=== PATIENT | female | born 1980 | race Caucasian/White ===

== ENCOUNTER 2017-07-17 19:33 | Emergency (ER) | payer BC | END 2017-07-17 20:57 | disposition left against medical advice (07) | LOC: UCCORT 19:33 | DX: R05 Cough (principal); Z53.21 Procedure and treatment not carried out due to patient leaving prior to being seen by health care provider ==

== ENCOUNTER → 2017-11-17 14:08 | Emergency (ER) | payer BC ==
[2017-11-17 14:12] VITALS: BP 147/80
--- NOTE | 2017-11-17 15:53 | ED ---
Luke Greenberg Angela, scribed for Dafne Alexander MD on 11/17/17 at 1437 . Complex/Multi-Sys Presentation - HPI Summary HPI Summary: This pt is a 37 y/o female [facility] in [facility] for aplastic anemia (low hemoglobin and low hematocrit). Pt reports Dr. Ramirez's office at [facility] ordered a weekly blood draw which pt had done at [facility] this am, and a critical value was called to the Cancer Center and pt was found to have a hemoglobin of 5.7 and hematocrit of 16. Mary Li RN from [facility] states pt has usual H/H in the 7/20 range, and she is pancytopenic. Pt notes she had a transfusion of 4 units blood 4 weeks ago at [facility]. Currently pt denies any physical complaints or any pain. She states she is nervous now due to her abnormal blood work. Pt has never been transfused at [facility] before. - History Of Current Complaint Chief Complaint: EDGeneral Time Seen by Provider: 11/17/17 14:16 Hx Obtained From: Patient Onset/Duration: Sudden Onset, Still Present Timing: Constant Severity Currently: None - no pain or physical complaints Location: Negative Associated Signs And Symptoms: Positive: Other - pt denies any complaints Related History: Other - transfused 4 weeks ago, 4 units - Allergies/Home Medications Allergies/Adverse Reactions: Allergies Allergy/AdvReac Type Severity Reaction Status Date / Time No Known Allergies Allergy Verified 10/12/16 08:54 PMH/Surg Hx/FS Hx/Imm Hx Previously Healthy: No Endocrine/Hematology History: Reports: Hx Bone Marrow Disease - aplastic anemia Denies: Hx Diabetes Cardiovascular History: Denies: Hx Hypertension - Surgical History Surgery Procedure, Year, and Place: none Infectious Disease History: No Infectious Disease History: Denies: Traveled Outside the [place] in Last 30 Days - Family History Known Family History: Positive: Respiratory Disease - asthma - Social History Lives: With Family Alcohol Use: Rare Substance Use Type: Reports: None Smoking Status (MU): Former Smoker Type: Cigarettes Review of Systems Constitutional: Other - low hematocrit and low hemoglobin Negative: Fever, Chills Eyes: Negative Negative: Chest Pain Negative: Shortness Of Breath Musculoskeletal: Negative Skin: Negative Psychological: Other - nervous All Other Systems Reviewed And Are Negative: Yes Physical Exam - Summary Physical Exam Summary: Appearance: Well-appearing, no pain distress, Well-nourished Skin: Warm, color reflects adequate perfusion, pale skin not appreciated by me Head: Normal Head/Face inspection Eyes: Conjunctiva clear ENT: Normal ENT inspection Neck: Supple Respiratory: Lungs clear, Normal breath sounds, no respiratory distress Cardio: RRR, No murmur, pulses normal, brisk capillary refill Abdomen: soft, nontender Musculoskeletal: Strength Intact/ ROM intact. No calf tenderness. No edema. Neuro: Alert, muscle tone normal, facial symmetry, speech normal, sensory/motor intact Psychological: Normal Triage Information Reviewed: Yes Vital Signs On Initial Exam: Initial Vitals Temp Pulse Resp BP Pulse Ox 98.8 F 106 18 147/80 100 11/17/17 14:09 11/17/17 14:09 11/17/17 14:09 11/17/17 14:09 11/17/17 14:09 Vital Signs Reviewed: Yes Diagnostics - Vital Signs Vital Signs Temp Pulse Resp BP Pulse Ox 11/17/17 14:09 98.8 F 106 18 147/80 100 - Laboratory Lab Statement: Any lab studies that have been ordered have been reviewed, and results considered in the medical decision making process. Re-Evaluation - Re-Evaluation First Eval Re-Evaluation Time: 15:15 Change: Unchanged Comment: I discussed with the pt that I spoke with Dr. Parks (from the [facility]) who recommends to transfuse 2 units of blood. Pt was advised to keep her appointment with Dr. Ramirez next Wed., 11/24/17. Pt is being taken to the [facility]fusion [facility]. Complex Multi-Symp Course/Dx Course Of Treatment: Pt medications reviewed this visit. High blood pressure noted. I discussed pt care with Dr. Parks from [facility], who reports to transfuse [address] Parks also advises for the pt to keep her appointment with Dr. Ramirez next Wednesday, on 11/24/17. Pt was wheeled by wheelchair with her to the infusion center. Neutropenic precautions were maintained in the ED - Diagnoses Provider Diagnoses: Elevated BP without diagnosis of hypertension, Aplastic anemia, Transfusion of blood during current hospitalisation - Physician Notifications Discussed Care Of Patient With: Dr. Parks - [facility] Time Discussed With Above Provider: 15:10 Instructed by Provider To: Have Pt Call For Appt. - I discussed pt care with Dr. Parks from [facility], who reports to transfuse [address] Parks also advises for the pt to keep her appointment with Dr. Ramirez next Wednesday, on 11/24/17. Discharge - Discharge Plan Condition: Stable Disposition: OTHER Discharge Disposition Comment: transported via wheelchair to the [facility] center Patient Education Materials: Anemia (ED) Referrals: Roseline Bull PA [Primary Care Provider] - Additional Instructions: You will receive 2 units of leukocyte poor packed red blood cells in the [facility] center. We have discussed this with Dr. Parks, covering for Dr. Ramirez at the [facility]. Keep your appointment with Dr. Ramirez for Nov 24, 2017 as scheduled. Return to the ED if you have any new or worsening symptoms. The documentation as recorded by the Luke faith Angela accurately reflects the service I personally performed and the decisions made by , Dafne Alexander MD.
== END ==
LOC: ED 14:08
DX: R03.0 Elevated blood-pressure reading, without diagnosis of hypertension (principal); D61.9 Aplastic anemia, unspecified; Z87.891 Personal history of nicotine dependence
CPT/HCPCS: 36415; 86850; 86900; 86901; 86922; 99282; P9040

== ENCOUNTER 2017-12-01 10:41 | Emergency (ER) | payer BC ==
--- NOTE | 2017-12-01 12:15 | ED ---
Lashon Greenberg Gabriel, scribed for William Peck MD on 12/01/17 at 1143 . Complex/Multi-Sys Presentation - HPI Summary HPI Summary: This patient is a 37 year old F [facility] by her after getting her blood drawn earlier today and has low Hgb (6.6) and Neutrophil (.6) Patient denies recently illness. Patient was diagnosed with idiopathic aplastic anemia on 10/08 and has been receiving blood transfusions. After her lab work today Dr. Ramirez, the doctor that has been treating her, recommended she come here for a transfusion. - History Of Current Complaint Chief Complaint: EDGeneral Time Seen by Provider: 12/01/17 11:31 Hx Obtained From: Patient Onset/Duration: Still Present Timing: Constant Severity Currently: Mild Severity Initially: Mild Associated Signs And Symptoms: Negative: Wheezing, Chest Pain, Palpitations, Edema, Nausea, Vomiting, Diarrhea - Allergies/Home Medications Allergies/Adverse Reactions: Allergies Allergy/AdvReac Type Severity Reaction Status Date / Time No Known Allergies Allergy Verified 10/12/16 08:54 PMH/Surg Hx/FS Hx/Imm Hx Endocrine/Hematology History: Reports: Other Endocrine/Hematological Disorders - idiopathic aplastic anemia Denies: Hx Diabetes, Hx Thyroid Disease Cardiovascular History: Denies: Hx Atrial Fibrillation, Hx Congenital Heart Disease, Hx Coronary Artery Disease, Hx Deep Vein Thrombosis Respiratory History: Denies: Hx Asthma, Hx Bronchopulmonary Dysplasia, Hx Chronic Obstructive Pulmonary Disease (COPD) GI History: Denies: Hx Cirrhosis, Hx Crohn's Disease History: Denies: Hx Acute Renal Failure, Hx Benign Prostatic Hyperplasia, Hx Chronic Renal Failure Musculoskeletal History: Denies: Hx Arthritis, Hx Rheumatoid Arthritis Sensory History: Denies: Hx Cataracts Opthamlomology History: Denies: Hx Cataracts Neurological History: Denies: Hx CVA, Hx Dementia Infectious Disease History: Unable to Obtain/Confirm Infectious Disease History: Denies: Traveled Outside the [place] in Last 30 Days - Family History Known Family History: Positive: Respiratory Disease - asthma Negative: Cardiac Disease, Hypertension, Diabetes, Renal Disease, Seizure Disorder, Blood Disorder - Social History Occupation: Employed Full-time Lives: With Family Alcohol Use: None Alcohol Amount: few drinks a week Hx Substance Use: No Substance Use Type: Reports: None Hx Tobacco Use: No Smoking Status (MU): Former Smoker Type: Cigarettes Review of Systems Negative: Chest Pain Negative: Shortness Of Breath Negative: Rash Negative: Headache Negative: Anxious All Other Systems Reviewed And Are Negative: Yes Physical Exam Triage Information Reviewed: Yes Vital Signs On Initial Exam: Initial Vitals Temp Pulse Resp BP Pulse Ox 99.8 F 88 18 117/60 100 12/01/17 11:22 12/01/17 11:22 12/01/17 11:22 12/01/17 11:22 12/01/17 11:22 Vital Signs Reviewed: Yes Appearance: Positive: Well-Appearing, No Pain Distress Skin: Positive: Warm, Skin Color Reflects Adequate Perfusion Eyes: Positive: EOMI ENT: Positive: Normal ENT inspection Neck: Positive: Supple, Nontender Respiratory/Lung Sounds: Positive: Clear to Auscultation, Breath Sounds Present Cardiovascular: Positive: RRR. Negative: Murmur Abdomen Description: Positive: Nontender Musculoskeletal: Positive: Strength/ROM Intact Neurological: Positive: Sensory/Motor Intact, Alert, Oriented to Person Place, Time, CN Intact II-III Psychiatric: Positive: Normal - Kike Coma Scale Best Eye Response: 4 - Spontaneous Best Motor Response: 6 - Obeys Commands Best Verbal Response: 5 - Oriented Diagnostics - Vital Signs Vital Signs Temp Pulse Resp BP Pulse Ox 12/01/17 11:22 99.8 F 88 18 117/60 100 - Laboratory Lab Statement: Any lab studies that have been ordered have been reviewed, and results considered in the medical decision making process. Complex Multi-Symp Course/Dx Course Of Treatment: 37 yr old with aplastic anemia idopathic, and RENETTA Ramirez and the patient to get the PRBC here, and they will follow up as outpatient. This is more convenient for patient than driving to [facility]. They recommend Tylenol and benadryl to be given with transfusion. The patient has no SOB and does not feel ill in any way. Neutropenic precautions maintained. - Diagnoses Provider Diagnoses: Aplastic anemia - Physician Notifications Discussed Care Of Patient With: Arlyn Ramirez MD - [facility] in [place] and they are fully aware of the entire CBC profile. They ask that two untis of PRBC be given, no platelets, and they are have given script for levaquin for paitnet for the ANC low. FU Dr Ramirez. Time Discussed With Above Provider: 11:39 Instructed by Provider To: Other - We discussed patient care with Dr. Prince nurse. They are both aware of the patients situation and recommend she receives 2 units. Discharge - Discharge Plan Condition: Good Disposition: HOME Discharge Disposition Comment: Patient going to outpatient transfusion here at [facility] prior to going home. Patient Education Materials: Anemia (ED) Referrals: Roseline Bull PA [Primary Care Provider] - The documentation as recorded by the Lashon faith Gabriel accurately reflects the service I personally performed and the decisions made by me, William Peck MD.
[2017-12-01 13:03] VITALS: BP 00/00
== END 2017-12-01 13:02 | disposition home or self-care (01) ==
LOC: ED 10:41
DX: D64.9 Anemia, unspecified (principal); Z87.891 Personal history of nicotine dependence
CPT/HCPCS: 99282

== ENCOUNTER 2017-12-24 15:08 | Emergency (ER) | payer BC ==
[2017-12-24 19:18] LABS: ABS Neutrophils 0.5 10^3/ul (1.5-7.7); Hematocrit 18 % (35-47); Hemoglobin 6.4 g/dl (12.0-16.0); Mean Corpuscular HGB Conc 35 g/dl (31-36); Mean Corpuscular Hemoglobin 36 pg (27-31); Mean Corpuscular Volume 102 fL (80-97); Mean Platelet Volume 10 um3 (7.4-10.4); Platelet Count 50 10^3/ul (150-450); Red Blood Count 1.78 10^6/ul (4.0-5.4); Red Cell Distribution Width 28 % (10.5-15); White Blood Count 2.8 10^3/ul (3.5-10.8)
[2017-12-24 19:30] LABS: EGFR Non-African American 69.6 (>60)
[2017-12-24 19:44] LABS: INR 0.94 (0.77-1.02)
[2017-12-24 19:58] LABS: ABS Basophils 0 10^3/ul (0-0.2); ABS Eosinophils 0 10^3/ul (0-0.6); ABS Lymphocytes 2.1 10^3/ul (1.0-4.8); ABS Monocytes 0.2 10^3/ul (0-0.8); ABS Nucleated RBC 0 10^3/ul; Eosinophil % 0.4 % (0-6); Lymphocyte % 75.6 % (25-47); Nucleated Red Blood Cells % 0.1
[2017-12-24 23:03] VITALS: BP 113/68
--- NOTE | 2017-12-26 12:40 | ED ---
Walter Greenberg Julia, scribed for Wesley Walker MD on 12/24/17 at 1951 . Complex/Multi-Sys Presentation - HPI Summary HPI Summary: This patient is a 37 year old F presenting to [facility] accompanied by father with a chief complaint of SOB and dizziness today. Patient reports SOB and dizziness. She states she needs a blood transfusion. Pt is scheduled to receive blood transfusion on 12/29/17. Patient reports 11 blood transfusions since September of 2017. Pt is seen by Dr. Ramirez at [facility] for blood transfusion and Dr. Bull in [place] as her PCP. - History Of Current Complaint Chief Complaint: EDGeneral Time Seen by Provider: 12/24/17 18:38 Hx Obtained From: Patient Onset/Duration: Lasting Hours Timing: Constant Location: Negative Associated Signs And Symptoms: Positive: Other - SOB and dizziness - Allergies/Home Medications Allergies/Adverse Reactions: Allergies Allergy/AdvReac Type Severity Reaction Status Date / Time No Known Allergies Allergy Verified 12/01/17 16:02 PMH/Surg Hx/FS Hx/Imm Hx Endocrine/Hematology History: Reports: Other Endocrine/Hematological Disorders - idiopathic aplastic anemia Denies: Hx Diabetes, Hx Thyroid Disease Cardiovascular History: Denies: Hx Atrial Fibrillation, Hx Congenital Heart Disease, Hx Coronary Artery Disease, Hx Deep Vein Thrombosis Respiratory History: Denies: Hx Asthma, Hx Bronchopulmonary Dysplasia, Hx Chronic Obstructive Pulmonary Disease (COPD) GI History: Denies: Hx Cirrhosis, Hx Crohn's Disease History: Denies: Hx Acute Renal Failure, Hx Benign Prostatic Hyperplasia, Hx Chronic Renal Failure Musculoskeletal History: Denies: Hx Arthritis, Hx Rheumatoid Arthritis Sensory History: Denies: Hx Cataracts Opthamlomology History: Denies: Hx Cataracts Neurological History: Denies: Hx CVA, Hx Dementia Infectious Disease History: No Infectious Disease History: Denies: Traveled Outside the [place] in Last 30 Days - Family History Known Family History: Positive: Respiratory Disease - asthma Negative: Cardiac Disease, Hypertension, Diabetes, Renal Disease, Seizure Disorder, Blood Disorder - Social History Alcohol Use: None Alcohol Amount: few drinks a week Hx Substance Use: No Substance Use Type: Reports: None Hx Tobacco Use: No Smoking Status (MU): Former Smoker Type: Cigarettes Review of Systems Negative: Fever, Chills Negative: Erythema Negative: Sore Throat Negative: Chest Pain Positive: Shortness Of Breath Negative: Abdominal Pain, Vomiting, Nausea Negative: dysuria, hematuria Negative: Myalgia, Edema Negative: Rash Neurological: Other - dizziness All Other Systems Reviewed And Are Negative: Yes Physical Exam - Summary Physical Exam Summary: Constitutional: Well-developed, Well-nourished, Alert. (-) Distressed Skin: Warm, Dry HENT: Normocephalic; Atraumatic Eyes: Conjunctiva normal Neck: Musculoskeletal ROM normal neck. (-) JVD, (-) Stridor, (-) Tracheal deviation Cardio: Rhythm regular, rate normal, Heart sounds normal; Intact distal pulses; The pedal pulses are 2+ and symmetric. Radial pulses are 2+ and symmetric. (-) Murmur Pulmonary/Chest wall: Effort normal. (-) Respiratory distress, (-) Wheezes, (-) Rales Abd: Soft, (-) Tenderness, (-) Distension, (-) Guarding, (-) Rebound Musculoskeletal: (-) Edema Lymph: (-) Cervical adenopathy Neuro: Alert, Oriented x3 Psych: Mood and affect Normal Triage Information Reviewed: Yes Vital Signs On Initial Exam: Initial Vitals Temp Pulse Resp BP Pulse Ox 99.1 F 85 18 128/72 100 12/24/17 15:12 12/24/17 15:12 12/24/17 15:12 12/24/17 15:12 12/24/17 15:12 Vital Signs Reviewed: Yes Diagnostics - Vital Signs Vital Signs Temp Pulse Resp BP Pulse Ox 12/24/17 18:00 99.4 F 70 15 128/75 100 12/24/17 17:55 72 14 100 12/24/17 15:12 99.1 F 85 18 128/72 100 - Laboratory Lab Results: Lab Results 12/24/17 12/24/17 12/24/17 Range/Units 19:02 19:02 19:02 WBC 2.8 L (3.5-10.8) 10^3/ul RBC 1.78 L (4.0-5.4) 10^6/ul Hgb 6.4 L* (12.0-16.0) g/dl Hct 18 L (35-47) % MCV 102 H (80-97) fL MCH 36 H (27-31) pg MCHC 35 (31-36) g/dl RDW 28 H (10.5-15) % Plt Count 50 L (150-450) 10^3/ul MPV 10 (7.4-10.4) um3 Neut % (Auto) 18.2 L (38-83) % Lymph % (Auto) 75.6 H (25-47) % Shackelford % (Auto) 5.5 (1-9) % Eos % (Auto) 0.4 (0-6) % Baso % (Auto) 0.3 (0-2) % Absolute Neuts (auto) 0.5 L* (1.5-7.7) 10^3/ul Absolute Lymphs (auto) 2.1 (1.0-4.8) 10^3/ul Absolute Monos (auto) 0.2 (0-0.8) 10^3/ul Absolute Eos (auto) 0 (0-0.6) 10^3/ul Absolute Basos (auto) 0 (0-0.2) 10^3/ul Absolute Nucleated RBC 0 10^3/ul Nucleated RBC % 0.1 Hem Pathologist Commnt Pending INR (Anticoag Therapy) 0.94 (0.77-1.02) APTT 27.7 (26.0-36.3) seconds Sodium 137 (133-145) mmol/L Potassium TNP Chloride 107 (101-111) mmol/L Carbon Dioxide 24 (22-32) mmol/L Anion Gap 6 (2-11) mmol/L BUN 13 (6-24) mg/dL Creatinine 0.91 (0.51-0.95) mg/dL Est GFR ( Amer) 89.5 (>60) Est GFR (Non-Af Amer) 69.6 (>60) BUN/Creatinine Ratio 14.3 (8-20) Glucose 96 (70-100) mg/dL Calcium 9.1 (8.6-10.3) mg/dL Total Bilirubin 0.50 (0.2-1.0) mg/dL AST TNP ALT 12 (7-52) U/L Alkaline Phosphatase 39 (34-104) U/L Total Protein 6.8 (6.4-8.9) g/dL Albumin 4.1 (3.2-5.2) g/dL Globulin 2.7 (2-4) g/dL Albumin/Globulin Ratio 1.5 (1-3) Group A Strep Rapid (Negative) Blood Type Antibody Screen Crossmatch 12/24/17 12/24/17 12/24/17 Range/Units 19:02 19:17 20:00 WBC (3.5-10.8) 10^3/ul RBC (4.0-5.4) 10^6/ul Hgb (12.0-16.0) g/dl Hct (35-47) % MCV (80-97) fL MCH (27-31) pg MCHC (31-36) g/dl RDW (10.5-15) % Plt Count (150-450) 10^3/ul MPV (7.4-10.4) um3 Neut % (Auto) (38-83) % Lymph % (Auto) (25-47) % Shackelford % (Auto) (1-9) % Eos % (Auto) (0-6) % Baso % (Auto) (0-2) % Absolute Neuts (auto) (1.5-7.7) 10^3/ul Absolute Lymphs (auto) (1.0-4.8) 10^3/ul Absolute Monos (auto) (0-0.8) 10^3/ul Absolute Eos (auto) (0-0.6) 10^3/ul Absolute Basos (auto) (0-0.2) 10^3/ul Absolute Nucleated RBC 10^3/ul Nucleated RBC % Hem Pathologist Commnt INR (Anticoag Therapy) (0.77-1.02) APTT (26.0-36.3) seconds Sodium (133-145) mmol/L Potassium 4.0 Chloride (101-111) mmol/L Carbon Dioxide (22-32) mmol/L Anion Gap (2-11) mmol/L BUN (6-24) mg/dL Creatinine (0.51-0.95) mg/dL Est GFR ( Amer) (>60) Est GFR (Non-Af Amer) (>60) BUN/Creatinine Ratio (8-20) Glucose (70-100) mg/dL Calcium (8.6-10.3) mg/dL Total Bilirubin (0.2-1.0) mg/dL AST 11 L ALT (7-52) U/L Alkaline Phosphatase (34-104) U/L Total Protein (6.4-8.9) g/dL Albumin (3.2-5.2) g/dL Globulin (2-4) g/dL Albumin/Globulin Ratio (1-3) Group A Strep Rapid Negative (Negative) Blood Type A Positive Antibody Screen Negative Crossmatch See Detail Result Diagrams: 12/24/17 19:02 12/24/17 20:00 Lab Statement: Any lab studies that have been ordered have been reviewed, and results considered in the medical decision making process. - EKG 1840 Cardiac Rate: NL - at 82 BPM EKG Rhythm: Sinus Rhythm EKG Interpretation: no STEMI Complex Multi-Symp Course/Dx Course Of Treatment: Pt presents requesting a blood transfusion. Pt has SOB and dizziness today. Pt is scheduled to receive blood transfusion on 12/29/17. Pts bloodwork reveal low neutrophils and low Hgb. Pt was given 1 unit of blood. She is refusing more than 1 unit. She is not suspected to have an acitve bleed. There is significant risk with admission due to high flu burden; flu could be fatal due to neutrophenic state. - Diagnoses Provider Diagnoses: Aplastic anemia, Symptomatic anemia, Neutropenia Discharge - Discharge Plan Condition: Stable Disposition: HOME Patient Education Materials: Aplastic Anemia (DC), Neutropenia (ED) Referrals: Arlyn Ramirez MD [Medical Doctor] - 2 Days (Follow up with Dr. Ramirez in 2-3 days.) Additional Instructions: RETURN TO THE EMERGENCY DEPARTMENT FOR CHANGING OR WORSENING SYMPTOMS. The documentation as recorded by the Walter faith Julia accurately reflects the service I personally performed and the decisions made by , Wesley Walker MD.
== END 2017-12-24 23:03 | disposition home or self-care (01) ==
LOC: ED 15:08
DX: D61.9 Aplastic anemia, unspecified (principal); Z87.891 Personal history of nicotine dependence
CPT/HCPCS: 36415; 36430; 80053; 85025; 85060; 85610; 85730; 86850; 86900; 86901; 86922; 87651; 93005; 99283; P9040

== ENCOUNTER 2019-07-01 09:27 | Emergency (ER) | payer BC ==
[2019-07-01 09:50] VITALS: BP 136/79
--- NOTE | 2019-07-01 10:11 | UC ---
Eye Complaint HPI - HPI Summary HPI Summary: 38-year-old female with pink eye and both eyes over the past couple of days. She denies any recent cold symptoms, denies any injury to her eyes. She is presently wearing contacts because she does not have her glasses with her. - History of Current Complaint Chief Complaint: UCEye Stated Complaint: R EYE CONCERN Time Seen by Provider: 07/01/19 10:11 Hx Obtained From: Patient Hx Last Menstrual Period: PT TAKES DANAZOL , DOES NOT HAVE PERIODS ?: No Onset/Duration: Gradual Onset Timing: Constant Severity Initially: Mild Severity Currently: Mild Pain Intensity: 3 Location of Injury: Other Aggravating Factor(s): Contact Lens - No injury Alleviating Factor(s): Nothing Associated Signs And Symptoms: Positive: Drainage (Purulent) - Allergies/Home Medications Allergies/Adverse Reactions: Allergies Allergy/AdvReac Type Severity Reaction Status Date / Time No Known Allergies Allergy Verified 07/01/19 09:37 Home Medications: Home Medications Danazol CAP* [Danocrine CAP*] 200 mg PO BID 07/01/19 [History Confirmed 07/01/19 ] Irbesartan 75 mg PO DAILY 07/01/19 [History Confirmed 07/01/19] Venlafaxine HCl [Effexor XR-] 37.5 mg PO DAILY 07/01/19 [History Confirmed 07/01] PMH/Surg Hx/FS Hx/Imm Hx Previously Healthy: Yes - Surgical History Surgical History: None - Family History Known Family History: Positive: Respiratory Disease - asthma Negative: Cardiac Disease, Hypertension, Diabetes, Renal Disease, Seizure Disorder, Blood Disorder - Social History Alcohol Use: Occasionally Alcohol Amount: few drinks a week Substance Use Type: None Smoking Status (MU): Former Smoker Type: Cigarettes When Did the Patient Quit Smoking/Using Tobacco: 20 YEARS AGO - Immunization History Most Recent Influenza Vaccination: July 2016 Review of Systems All Other Systems Reviewed And Are Negative: Yes Eyes: Positive: Drainage, Eye Redness - Bilateral eye redness. Is Patient Immunocompromised?: No Physical Exam Triage Information Reviewed: Yes Appearance: Well-Appearing, No Pain Distress, Well-Nourished Vital Signs: Initial Vital Signs Temp 99.1 F 07/01/19 09:42 Pulse 90 07/01/19 09:42 Resp 15 07/01/19 09:42 BP 136/79 07/01/19 09:42 Pulse Ox 99 07/01/19 09:42 Vital Signs Reviewed: Yes Eyes: Positive: Other: - PERRLA, EOMI, conjunctiva and sclera injected with minimal drainage at the inner canthus bilaterally. Contact lenses are in place. Psychological Exam: Normal Eye Complaint Course/Dx - Course Course Of Treatment: Patient was advised to remove her contact lenses as soon as she gets home and wear glasses for the rest of the week while she is taking the antibiotic drops. She is to follow-up the change house attendant if no improvement in 2 or 3 days. - Differential Dx/Diagnosis Provider Diagnosis: Bilateral conjunctivitis Discharge - Sign-Out/Discharge Documenting (check all that apply): Patient Departure All imaging exams completed and their final reports reviewed: No Studies - Discharge Plan Condition: Good Disposition: HOME Prescriptions: Tobramycin 0.3% OPHTH.SHIRLEY* 1 drop BOTH EYES Q4H 7 Days #1 btl Patient Education Materials: Conjunctivitis (ED) Referrals: Roseline Bull PA [Primary Care Provider] - Additional Instructions: Good handwashing, no contacts for 1 week, follow-up with the change house attendant in 2 or 3 days if no improvement or if worsening symptoms. - Billing Disposition and Condition Condition: GOOD Disposition: Home
== END 2019-07-01 10:23 | disposition home or self-care (01) ==
LOC: UCCORT 09:27
DX: H10.9 Unspecified conjunctivitis (principal); Z87.891 Personal history of nicotine dependence
CPT/HCPCS: 99212; G0463

== ENCOUNTER 2019-12-03 10:36 | Emergency (ER) | payer BC ==
[2019-12-03 10:40] VITALS: BP 135/90
--- NOTE | 2019-12-03 10:57 | ED ---
Skin Complaint - HPI Summary HPI Summary: Pt is a 39 y/o F presenting to the ED with a chief skin complaint. She states she shaved her area for the first time in a while, so she shaved more aggressively than usual, and she had some discomfort afterward. She saw her PCP who stated she had an abscess and placed her on Augmentin. She has been on it for 5 days, and she believes it has gotten worse. She denies abd pain. Bacitracin made the pain worse. - History of Current Complaint Chief Complaint: EDRashSkinAbscess Time Seen by Provider: 12/03/19 10:42 Stated Complaint: BOIL , Hx Obtained From: Patient Hx Last Menstrual Period: PT TAKES DANAZOL , DOES NOT HAVE PERIODS Onset/Duration: Started Days Ago, Still Present Skin Exposure Onset/Duration: Days Ago Timing: Constant, Lasting Days Onset Severity: Moderate Current Severity: Severe Pain Intensity: 9 Pain Scale Used: 0-10 Numeric Skin Location: Other: - vagina Character: Pain Aggravating Symptom(s): Nothing Alleviating Symptom(s): Nothing Associated Signs & Symptoms: Rash - Allergy/Home Medications Allergies/Adverse Reactions: Allergies Allergy/AdvReac Type Severity Reaction Status Date / Time No Known Allergies Allergy Verified 12/03/19 10:40 Home Medications: Home Medications cloNIDine TAB* [Catapres 0.1 MG TAB*] 0.1 mg PO BEDTIME 12/03/19 [History Confirmed 12/03/19] PMH/Surg Hx/FS Hx/Imm Hx Previously Healthy: Yes Endocrine/Hematology History: Reports: Other Endocrine/Hematological Disorders - idiopathic aplastic anemia Denies: Hx Diabetes, Hx Thyroid Disease Cardiovascular History: Reports: Hx Hypertension Denies: Hx Atrial Fibrillation, Hx Congenital Heart Disease, Hx Coronary Artery Disease, Hx Deep Vein Thrombosis Respiratory History: Denies: Hx Asthma, Hx Bronchopulmonary Dysplasia, Hx Chronic Obstructive Pulmonary Disease (COPD) GI History: Denies: Hx Cirrhosis, Hx Crohn's Disease History: Denies: Hx Acute Renal Failure, Hx Benign Prostatic Hyperplasia, Hx Chronic Renal Failure Musculoskeletal History: Denies: Hx Arthritis, Hx Rheumatoid Arthritis Sensory History: Denies: Hx Cataracts Opthamlomology History: Denies: Hx Cataracts Neurological History: Denies: Hx CVA, Hx Dementia Infectious Disease History: No Infectious Disease History: Denies: Traveled Outside the [place] in Last 30 Days - Family History Known Family History: Positive: Respiratory Disease - asthma Negative: Cardiac Disease, Hypertension, Diabetes, Renal Disease, Seizure Disorder, Blood Disorder - Social History Alcohol Use: Weekly Alcohol Amount: few drinks a week Hx Substance Use: No Substance Use Type: Reports: None Hx Tobacco Use: No Smoking Status (MU): Current Some Day Smoker Type: Cigarettes Review of Systems Negative: Abdominal Pain Positive: Rash, Other - abscess/lesion to vaginal area All Other Systems Reviewed And Are Negative: Yes Physical Exam - Summary Physical Exam Summary: Constitutional: Well-developed, Well-nourished, Alert. (-) Distressed Skin: Warm, Dry HENT: Normocephalic; Atraumatic Eyes: Conjunctiva normal Neck: Musculoskeletal ROM normal neck. (-) JVD, (-) Stridor, (-) Tracheal deviation Cardio: Rhythm regular, rate normal, Heart sounds normal; Intact distal pulses; The pedal pulses are 2+ and symmetric. Radial pulses are 2+ and symmetric. (-) Murmur Pulmonary/Chest wall: Effort normal. (-) Respiratory distress, (-) Wheezes, (-) Rales Abd: Soft, (-) tenderness, (-) Distension, (-) Guarding, (-) Rebound Musculoskeletal: (-) Edema Lymph: (-) Cervical adenopathy Neuro: Alert, Oriented x3 Psych: Mood and affect Normal : Several small maculopapular regions originating from hair follicles, c/w folliculitis. No visible abscess or fluctuance. No region of confluent erythema. Triage Information Reviewed: Yes Vital Signs On Initial Exam: Initial Vitals Temp Pulse Resp BP Pulse Ox 98.1 F 95 17 135/90 98 12/03/19 10:37 12/03/19 10:37 12/03/19 10:37 12/03/19 10:37 12/03/19 10:37 Vital Signs Reviewed: Yes Procedures - Sedation Patient Received Moderate/Deep Sedation with Procedure: No Diagnostics - Vital Signs Vital Signs Temp Pulse Resp BP Pulse Ox 12/03/19 10:37 98.1 F 95 17 135/90 98 - Laboratory Lab Statement: Any lab studies that have been ordered have been reviewed, and results considered in the medical decision making process. Course/Dx - Course Course Of Treatment: Pt is a 39 y/o F presenting to the ED with a chief skin complaint. She states she had an aggravated area in her region after shaving , she saw her PCP who stated she had an abscess, and she believes it has gotten worse. She reports pain and redness to the area. She denies abd pain. She states Bacitracin made it worse. On exam, pt has several small maculopapular regions originating from hair follicles, c/w folliculitis. No visible abscess or fluctuance. No region of confluent erythema. Pt will be d/c'ed with dx of folliculitis, placed on oral abx, as well as topical Clindamycin to tx the area. She is agreeable with this plan. - Diagnoses Provider Diagnoses: Folliculitis Discharge ED - Sign-Out/Discharge Documenting (check all that apply): Patient Departure - Discharge Plan Condition: Stable Disposition: HOME Prescriptions: Clindamycin Phosphate [Clindamycin Phosphate 1 % TOPICAL] 50 gm TP BID 7 Days foam Clindamycin Phosphate [Clindamycin Phosphate 1 % TOPICAL] 50 gm TP BID #50 foam Patient Education Materials: Folliculitis (ED) Referrals: Roseline Bull PA [Primary Care Provider] - Additional Instructions: Please use your prescribed medications as instructed. Follow up with your primary care provider within the next 2-3 days. Return to the emergency department with any new or worsening symptoms. - Billing Disposition and Condition Condition: STABLE Disposition: Home - Attestation Statements Document Initiated by Magalie: Yes Documenting Scribe: Consuelo Mcmillan Provider For Whom Magalie is Documenting (Include Credential): Ankit Medina DO. Scribe Attestation: Consuelo Greenberg scribed for Ankit Medina DO. on 12/03/19 at 1126. Scribe Documentation Reviewed: Yes Provider Attestation: The documentation as recorded by the Consuelo faith accurately reflects the service I personally performed and the decisions made by Ankit townsend DO. Status of Scribe Document: Viewed
--- OUTSIDE RECORDS SUMMARY | 2019-12-03 10:58 | XMS REPORT | Continuity of Care Document ---
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 Social History Type Date Description Comments Sex Unknown Tobacco Use Start: Unknown End: Unknown Patient is a former smoker Quit 8yrs ago Smoking Status Reviewed: 11/13/19 Patient is a former smoker Quit 8yrs ago Allergies, Adverse Reactions, Alerts Description No Known Drug Allergies Medications Active Medications SIG Qnty Indications Ordering Provider Date Amoxicillin/Clavulana 1 tab by mouth 14tabs N76.4 11/29/2019 te Potassium twice a day with MD Claudio 875-125mg food Tablets Clonidine HCL 1 by mouth every 30tabs N95.1 11/13/2019 0.1mg night MD Claudio Tablets Irbesartan 1 by mouth every 90tabs 02/21/2019 75mg Tablets day MD Claudio Venlafaxine HCL 1 by mouth every 30tabs 02/21/2019 37.5mg day MD Claudio Tablets Clonazepam 1 by mouth at 30tabs 02/21/2019 1mg Tablets bedtime as needed MD Claudio for insomnia Turmeric 450mg ( takes 02/21/2019 1200mg daily) MD Claudio Danazol 1 tablet twice a Unknown 100mg Capsules day Immunizations CPT Code Status Date Vaccine Lot # [id number] Given 06/21/1998 Measles Mumps And Rubella MMR Vital Signs Date Vital Result Comment 11/29/2019 3:23pm Weight 214.19 lb BP Systolic Sitting 128 mmHg BP Diastolic Sitting 80 mmHg Body Temperature 96.7 F 11/13/2019 9:46am Height 70 inches 5'10" Weight 209.12 lb Heart Rate 90 /min BP Systolic Sitting 138 mmHg BP Diastolic Sitting 78 mmHg O2 % BldC Oximetry 99 % BMI (Body Mass Index) 30.0 kg/m2 Results Test Acquired Date Facility Test Result H/L Range Note Comp Metabolic 07/05/2019 [facility] Sodium 135 mmol/L Normal 135-[address] [place] [address] [phone] Potassium 4.3 mmol/L Normal 3.5-5.0 Chloride 101 mmol/L Normal 101-111 Co2 Carbon Dioxide 27 mmol/L Normal 22-32 Anion Gap 7 mmol/L Normal 2-11 Glucose 114 mg/dL High 70-100 Blood Urea Nitrogen 12 mg/dL Normal 6-24 Creatinine 0.92 mg/dL Normal 0.51-0.95 BUN/Creatinine Ratio 13.0 Normal 8-20 Calcium 9.6 mg/dL Normal 8.6-10.3 Total Protein 7.1 g/dL Normal 6.4-8.9 Albumin 4.5 g/dL Normal 3.2-5.2 Globulin 2.6 g/dL Normal 2-4 Albumin/Globulin Ratio 1.7 Normal 1-3 Total Bilirubin 0.60 mg/dL Normal 0.2-1.0 Alkaline Phosphatase 43 U/L Normal 34-104 Alt 28 U/L Normal 7-52 Ast 26 U/L Normal 13-39 Egfr Non- 68.3 >60 Egfr 82.7 >60 1 Laboratory 07/05/2019 [facility] TSH (Thyroid 0.57 Normal 0.34 -5.60 test finding [address] Stim Horm) mcIU/[place] [address] [phone] Free T4 (Free Thyroxine) 1.00 ng/dL Normal 0.61-1.12 1 Because ethnic data is not always readily available, this report includes an eGFR for both -Americans and non- Americans. The National Kidney Disease Education Program (NKDEP) does not endorse the use of the MDRD equation for patients that are not between the ages of 18 and 70, are , have extremes of body size, muscle mass, or nutritional status, or are non- or non-. According to the National Kidney Foundation, irrespective of diagnosis, the stage of the disease is based on the level of kidney function: Stage Description GFR(mL/min/1.73 m(2)) 1 Kidney damage with normal or decreased GFR 90 2 Kidney damage with mild decrease in GFR 60-89 3 Moderate decrease in GFR 30-59 4 Severe decrease in GFR 15-29 5 Kidney failure <15 (or dialysis) Procedures Description No Information Available Medical Devices Description No Information Available Encounters Type Date Location Provider Dx Diagnosis Office Visit 11/13/[address] [facility] Roseline Bull, I10 Essential ( primary) 9:30a ADRIEN hypertension F41.9 Anxiety disorder, unspecified D61.89 Oth aplastic anemias and other bone marrow failure syndromes N95.1 Menopausal and female climacteric states Assessments Date Code Description Provider 11/29/2019 N76.4 Abscess of vulva ADRIEN Wilson 11/13/2019 I10 Essential (primary) hypertension ADRIEN Wilson 11/13/2019 F41.9 Anxiety disorder, unspecified ADRIEN Wilson 11/13/2019 D61.89 Other specified aplastic anemias and other ADRIEN Wilson bone marrow failu 11/13/2019 N95.1 Menopausal and female climacteric states ADRIEN Wilson Plan of Treatment Future Appointment(s):12/11/2019 9:30 am - ADRIEN Wilson at [facility]11/29/2019 - Roseline Bull PAN76.4 Abscess of vulvaNew Medication: Amoxicillin/Clavulanate Potassium 875-125 mg - 1 tab by mouth twice a day with foodNew Labs:Ua Routine, Ordered: 11/29/19 Functional Status Description No Information Available Mental Status Description No Information Available Referrals Description No Information Available
--- OUTSIDE RECORDS SUMMARY | 2019-12-03 10:58 | XMS REPORT | Continuity of Care Document ---
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 [phone] Problems Active Problems Provider Date Essential hypertension [...] Medications SIG Qnty Indications Ordering Provider Date Clonidine HCL 1 by mouth every 30tabs N95.1 Toy 11/13/2019 0.1mg night MD Claudio Tablets Irbesartan 1 by mouth every 90tabs Toy 02/21/2019 75mg Tablets day MD Claudio Venlafaxine HCL 1 by mouth every 30tabs Toy 02/21/2019 37.5mg day MD Claudio Tablets Clonazepam 1 by mouth at 30tabs Toy 02/21/2019 1mg Tablets bedtime as needed MD Claudio for insomnia Turmeric 450mg ( takes Toy 02/21/2019 1200mg daily) MD Claudio Danazol 1 tablet twice a Unknown 100mg Capsules day Immunizations CPT Code Status Date Vaccine Lot # [id number] Given [birth year]/21/1998 Measles Mumps And Rubella MMR Vital Signs Date Vital Result Comment 11/13/2019 9:46am Height 70 inches 5'10" Weight 209.12 lb Heart Rate 90 /min BP Systolic Sitting 138 mmHg BP Diastolic Sitting 78 mmHg O2 % BldC Oximetry 99 % BMI (Body Mass Index) 30.0 kg/m2 05/08/2019 2:43pm Height 70 inches 5'10" Weight 214.12 lb Heart Rate 66 /min BP Systolic Sitting 132 mmHg BP Diastolic Sitting 80 mmHg O2 % BldC Oximetry 98 % BMI (Body Mass Index) 30.7 kg/m2 Results Test Acquired Date Facility Test Result H/L Range Note Comp Metabolic 07/05/2019 [facility] Sodium 135 mmol/L Normal 135-[address] [place] [address] [phone] Potassium 4.3 mmol/L Normal 3.5-5.0 Chloride 101 [...] >60 Egfr 82.7 >60 1 Laboratory 07/05/2019 [facility] TSH (Thyroid 0.57 Normal 0.34 -5.60 test finding [address] Stim Horm) mcIU/[place] [address] [phone] Free T4 (Free Thyroxine) 1.00 ng/dL Normal [...] Medical Devices Description No Information Available Encounters Description No Information Available Assessments Date Code Description Provider 11/13/2019 I10 Essential (primary) hypertension ADRIEN Wilson 11/13/2019 F41.9 Anxiety disorder, unspecified ADRIEN Wilson 11/13/2019 D61.89 Other specified aplastic anemias and other ADRIEN Wilson bone marrow failu 11/13/2019 N95.1 Menopausal and female climacteric states ADRIEN Wilson Plan of Treatment Future Appointment(s):12/11/2019 9:30 am - ADRIEN Wilson at [facility]11/13/2019 - MARTHA Wilson Essential (primary) hypertensionComments:Current medication(s): Irbesartan 75mg joumuM58.9 Anxiety disorder, unspecifiedComments:Current medication(s): Clonazepam 1mg qhs prn insomnia, Venlafaxine 37.5mg tdypjI75.89 Other specified aplastic anemias and other bone marrow failuComments:Short telomere syndromeMarrow failure responding to Danazol, planned treatment is for 2 yrs (startedSpring 2017)N95.1 Menopausal and female climacteric statesNew Medication:Clonidine HCL 0.1 mg - 1 by mouth every night Functional Status Description No Information Available Mental Status Description No Information Available Referrals Description No Information Available
== END 2019-12-03 11:27 | disposition home or self-care (01) ==
LOC: ED 10:36
DX: L73.9 Follicular disorder, unspecified (principal); I10 Essential (primary) hypertension; F17.210 Nicotine dependence, cigarettes, uncomplicated; Z79.899 Other long term (current) drug therapy
CPT/HCPCS: 99282